=== PATIENT | female | born 1985 | race Caucasian/White ===

== ENCOUNTER 2021-07-20 12:14 | Emergency (ER) | payer OTHER ==
[~2021-07-20] VITALS: Ht 170.1 cm; Wt 90.7 kg
[2021-07-21 08:08] LABS: HEPATITIS B SURFACE AG Negative (Negative)
== END 2021-07-20 14:35 | disposition home or self-care (01) ==
LOC: ED 12:14 → EDSEX 12:17 → ED 14:35
PROVIDERS: Emergency Medicine
DX: Z77.21 Contact with and (suspected) exposure to potentially hazardous body fluids (principal); Z91.040 Latex allergy status; Z88.1 Allergy status to other antibiotic agents